=== PATIENT | male | born 1965 | race African-American/Black ===

== ENCOUNTER 2020-01-02 07:50 | Emergency (ER) | payer MEDICAID, OTHER ==
[~2020-01-02] VITALS: Ht 182.9 cm; Wt 77.1 kg
[~2020-01-02 07:50] MED LIST: BP MED; METF-370 PO; TRIA75TA55 PO
[2020-01-02 08:18] VITALS: BP 178/96
== END 2020-01-02 08:36 | disposition home or self-care (01) ==
LOC: ER 07:50
DX: I10 Essential (primary) hypertension (principal); K04.7 Periapical abscess without sinus; Z76.0 Encounter for issue of repeat prescription

== ENCOUNTER 2021-02-22 10:09 | Emergency (ER) | payer MEDICAID ==
[~2021-02-22] VITALS: Ht 182.9 cm; Wt 79.4 kg
[~2021-02-22 10:09] MED LIST changes: +AML5T PO; +ASPI81CH43 PO; +ATOR20TA50 PO; -BP MED; +LISI-646 PO; -METF-370 PO; -TRIA75TA55 PO
[2021-02-22 11:21] VITALS: BP 152/94
[2021-02-22] MEDS ORDERED: LACTULOSE 20Gm/30ML SOLN PO ONE (12:15)
== END 2021-02-22 12:25 | disposition home or self-care (01) ==
LOC: ER 10:09
DX: K59.00 Constipation, unspecified (principal); K64.4 Residual hemorrhoidal skin tags; I10 Essential (primary) hypertension; Z79.899 Other long term (current) drug therapy
CPT/HCPCS: 74018

== ENCOUNTER 2021-03-09 09:16 | Emergency (ER) | payer MEDICAID ==
[~2021-03-09] VITALS: Ht 182.9 cm; Wt 77.1 kg
[2021-03-09 09:46] LABS: Eosinophils # (auto) 0.1 10 ^3/uL (0-0.8); Monocytes # (auto) 0.7 10 ^3/uL (0-1.3)
[2021-03-09 09:48] LABS: Basophils # (auto) 0.1 10 ^3/uL (0-0.2); Basophils % (auto) 0.7 % (0.0-2.0); Eosinophils % (auto) 0.9 % (0.0-7.0); Hematocrit 45.2 % (41.0-53.0); Hemoglobin 14.8 g/dL (13.5-17.5); Lymphocytes # (auto) 2.9 10 ^3/uL (0.4-5.4); Lymphocytes % (auto) 36.9 % (10.0-50.0); Mean Corpuscular Hemoglobin 26.7 pg (28.0-32.0); Mean Corpuscular Hgb Conc. 32.8 g/dL (32.0-36.0); Mean Corpuscular Volume 81.5 fL (80.0-100.0); Monocytes % (auto) 8.7 % (0.0-12.0); Neutrophils # (auto) 4.2 10 ^3/uL (1.6-8.6); Neutrophils % (auto) 52.8 % (37.0-80.0); Platelet Count (auto) 226 10^3/uL (140-450); Red Blood Cells 5.54 10^6/uL (4.5-5.90); Red Cell Distribution Width 15.2 % (11.8-14.3); White Blood Cell 7.9 10^3/uL (4.4-10.8)
[2021-03-09] MEDS ORDERED: ASPirin 81 mg TAB PO ONE (10:00)
[2021-03-09 10:07] VITALS: BP 136/95
[2021-03-09 10:07] LABS: Albumin 3.8 g/dL (3.4-5.0); Anion Gap 10 (5-15); Blood Urea Nitrogen 20 mg/dL (7-18); Carbon Dioxide 24 mmol/L (21-32); Chloride 105 mmol/L (98-107); Glucose 90 mg/dL (74-106); Magnesium 2.4 mg/dL (1.6-2.6); Potassium 3.3 mmol/L (3.5-5.1); Sodium 139 mmol/L (136-145)
[2021-03-09 10:12] LABS: Alanine Aminotransferase 44 U/L (16-61); Alkaline Phosphatase 178 U/L (45-117); Aspartate Aminotransferase 23 U/L (15-37); BUN/Creatinine Ratio 16.4; Bilirubin, Total 0.4 mg/dL (0.2-1.0); GFR African American 79 mL/min; GFR Non-African American 65 mL/min; Total Protein 7.6 g/dL (6.4-8.2)
[2021-03-09] MEDS ORDERED: POTASSIUM EFFERVESENT TAB 25 MEQ PO ONE (10:30)
== END 2021-03-09 10:30 | disposition home or self-care (01) ==
LOC: ER 09:16
DX: R07.89 Other chest pain (principal); E87.6 Hypokalemia; I10 Essential (primary) hypertension
CPT/HCPCS: 36415; 71045; 80053; 83735; 84484; 85025; 93005

== ENCOUNTER 2021-07-21 09:04 | Inpatient (IN) | payer MEDICAID ==
[~2021-07-21] VITALS: Ht 182.9 cm; Wt 93.0 kg
[~2021-07-21 09:04] MED LIST changes: -LISI-646 PO; +LISI20TA28 PO
[2021-07-21 09:42] LABS: Urine Bacteria NONE SEEN /hpf (None Seen); Urine Blood Negative /uL (Negative); Urine Mucus FEW (None Seen); Urine WBC <1 /hpf (0 - 3)
[2021-07-21 10:45] LABS: Basophils # (auto) 0.1 10 ^3/uL (0-0.2); Basophils % (auto) 0.6 % (0.0-2.0); Eosinophils # (auto) 0.1 10 ^3/uL (0-0.8); Eosinophils % (auto) 0.8 % (0.0-7.0); Hematocrit 43.4 % (41.0-53.0); Hemoglobin 14.2 g/dL (13.5-17.5); Lymphocytes # (auto) 1.1 10 ^3/uL (0.4-5.4); Lymphocytes % (auto) 10.4 % (10.0-50.0); Mean Corpuscular Hemoglobin 27.3 pg (28.0-32.0); Mean Corpuscular Hgb Conc. 32.8 g/dL (32.0-36.0); Mean Corpuscular Volume 83.2 fL (80.0-100.0); Monocytes # (auto) 0.7 10 ^3/uL (0-1.3); Monocytes % (auto) 6.6 % (0.0-12.0); Neutrophils % (auto) 81.6 % (37.0-80.0); Nucleated Red Blood Cells % 0.1 %; Red Blood Cells 5.21 10^6/uL (4.5-5.90); Red Cell Distribution Width 17.6 % (11.8-14.3)
[2021-07-21 10:58] LABS: Albumin 3.5 g/dL (3.4-5.0); Calcium 9.1 mg/dL (8.5-10.1); Potassium 4.1 mmol/L (3.5-5.1)
[2021-07-21 11:01] LABS: BUN/Creatinine Ratio 17.6; Bilirubin, Total 0.8 mg/dL (0.2-1.0); Total Protein 7.3 g/dL (6.4-8.2)
[2021-07-21] MEDS ORDERED: cefTRIAXone 1GM/50ML D5W 50 ML IV ONE (12:30)
[2021-07-21] MEDS ORDERED: metroNIDAZOLE 500MG/100ML 100 ML IV ONE (12:30)
[2021-07-21] MEDS ORDERED: LACTATED RINGER'S 1,000 ML IV ONE (14:00)
[2021-07-21] MEDS ORDERED: NITROGLYCERIN 0.4 MG SL TAB SL PRN ×2 (14:00→15:00)
[2021-07-21] MEDS ORDERED: MORPHINE SULFATE INJECTION 2 MG/ML SYRG IV PRN ×3 (14:00→15:00)
[2021-07-21] MEDS ORDERED: ONDANSETRON HCL 4 MG/2 ML VIAL IV PRN (15:00)
[2021-07-21] MEDS ORDERED: ALUM & MAG HYDROX-SIMETH LIQ(MAALOX) 30 ML PO PRN (15:00)
[2021-07-21] MEDS ORDERED: ACETAMINOPHEN 325 MG TAB PO PRN (15:00)
[2021-07-21] MEDS ORDERED: LORazepam 0.5 MG TAB PO PRN (15:00)
[2021-07-21] MEDS ORDERED: hydrALAZINE HCL 20 MG/ML VL IV PRN (15:00)
[2021-07-21] MEDS ORDERED: DOCUSATE SOD 100 MG CAP PO PRN (15:00)
[2021-07-21 15:34] LABS: Cholesterol 145 mg/dL (< 200)
[2021-07-21 15:37] LABS: HDL Cholesterol 69 mg/dL (40-59); LDL Cholesterol 80 mg/dL (< 100); Triglycerides 47 mg/dL (< 150)
[2021-07-21 15:39] LABS: Magnesium 2.4 mg/dL (1.6-2.6); Phosphorus 3.2 mg/dL (2.5-4.90)
[2021-07-21] MEDS: SODIUM CHLORIDE 0.9% 1,000 ML IV SCH (15:39)
[2021-07-21 15:40] LABS: Amphetamine Screen, Urine NEGATIVE (NEGATIVE); Barbiturate Scree,Urine NEGATIVE (NEGATIVE); Benzodiazephine Screen, Urine NEGATIVE (NEGATIVE); Cannabinoid Screen, Urine NEGATIVE (NEGATIVE); Cocaine Screen, Urine NEGATIVE (NEGATIVE); Opiate Scree,Urine POSITIVE (NEGATIVE); Phencyclidine Screen, Urine NEGATIVE (NEGATIVE)
[2021-07-21 18:20] VITALS: BP 155/102
[2021-07-21] MEDS: HYDROcodone-ACET 5/325MG TAB PO PRN (20:32)
[2021-07-21] MEDS: metroNIDAZOLE 500MG/100ML 100 ML IV SCH (21:51)
[2021-07-21] MEDS: ATORVASTATIN 20 MG TAB PO SCH (21:52)
[2021-07-21 22:28] VITALS: BP 147/89
[2021-07-22] MEDS: SODIUM CHLORIDE 0.9% 1,000 ML IV SCH ×2 (04:23→17:57)
[2021-07-22 05:35] VITALS: BP 142/87
[2021-07-22] MEDS: metroNIDAZOLE 500MG/100ML 100 ML IV SCH ×3 (06:16→21:31)
[2021-07-22 08:15] VITALS: BP 133/76
[2021-07-22] MEDS: cefTRIAXone 1GM/50ML D5W 50 ML IV SCH (08:41)
[2021-07-22 09:00] VITALS: BP 133/76
[2021-07-22] MEDS: ASPirin 81 mg TAB PO SCH (10:31)
[2021-07-22] MEDS: LISINOPRIL 20 MG TAB PO SCH (10:32)
[2021-07-22] MEDS: ENOXAPARIN SOD 40 MG/0.4 ML SYRINGE SC SCH (10:32)
[2021-07-22] MEDS: amLODIPine BESYLATE 5 MG TAB PO SCH (10:32)
[2021-07-22] MEDS ORDERED: ARTIFICIAL TEARS 15ml EACHEYE PRN (15:45)
[2021-07-22 17:00] VITALS: BP 115/81
[2021-07-22] MEDS: HYDROcodone-ACET 5/325MG TAB PO PRN (17:57)
[2021-07-22] MEDS: LACTULOSE 20Gm/30ML SOLN PO PRN (21:13)
[2021-07-22] MEDS: ATORVASTATIN 20 MG TAB PO SCH (21:31)
[2021-07-22 22:00] VITALS: BP 122/95
[2021-07-23 05:00] VITALS: BP 121/75
[2021-07-23] MEDS: LACTULOSE 20Gm/30ML SOLN PO PRN (05:03)
[2021-07-23] MEDS: HYDROcodone-ACET 5/325MG TAB PO PRN (05:09)
[2021-07-23] MEDS: metroNIDAZOLE 500MG/100ML 100 ML IV SCH ×2 (05:50→13:49)
[2021-07-23] MEDS: SODIUM CHLORIDE 0.9% 1,000 ML IV SCH (07:20)
[2021-07-23 07:41] LABS: Basophils # (auto) 0 10 ^3/uL (0-0.2); Basophils % (auto) 0.5 % (0.0-2.0); Eosinophils # (auto) 0.1 10 ^3/uL (0-0.8); Eosinophils % (auto) 1.2 % (0.0-7.0); Hematocrit 40.5 % (41.0-53.0); Hemoglobin 13.2 g/dL (13.5-17.5); Lymphocytes # (auto) 1.3 10 ^3/uL (0.4-5.4); Lymphocytes % (auto) 22.8 % (10.0-50.0); Mean Corpuscular Hemoglobin 27.1 pg (28.0-32.0); Mean Corpuscular Hgb Conc. 32.6 g/dL (32.0-36.0); Mean Corpuscular Volume 83.3 fL (80.0-100.0); Monocytes # (auto) 0.7 10 ^3/uL (0-1.3); Monocytes % (auto) 12.3 % (0.0-12.0); Neutrophils # (auto) 3.6 10 ^3/uL (1.6-8.6); Neutrophils % (auto) 63.2 % (37.0-80.0); Red Blood Cells 4.86 10^6/uL (4.5-5.90); Red Cell Distribution Width 17.2 % (11.8-14.3); White Blood Cell 5.7 10^3/uL (4.4-10.8)
[2021-07-23 07:52] LABS: Potassium 4.5 mmol/L (3.5-5.1)
[2021-07-23 08:15] VITALS: BP 128/81
[2021-07-23 09:00] VITALS: BP 128/81
[2021-07-23] MEDS: cefTRIAXone 1GM/50ML D5W 50 ML IV SCH (09:33)
[2021-07-23] MEDS: amLODIPine BESYLATE 5 MG TAB PO SCH (09:34)
[2021-07-23] MEDS: ASPirin 81 mg TAB PO SCH (09:34)
[2021-07-23] MEDS: ENOXAPARIN SOD 40 MG/0.4 ML SYRINGE SC SCH (09:34)
[2021-07-23] MEDS: LISINOPRIL 20 MG TAB PO SCH (09:34)
[2021-07-23 13:00] VITALS: BP 134/95
[2021-07-23 14:25] VITALS: BP 134/95
== END 2021-07-23 15:00 | disposition home or self-care (01) | DRG 244 ==
LOC: ER 09:04 → OVERFLOW 13:46 → WEST WING 17:39
PROVIDERS: ADMIT Hospitalist; ATTEND Hospitalist
DX: K57.32 Diverticulitis of large intestine without perforation or abscess without bleeding (principal); N17.0 Acute kidney failure with tubular necrosis; D72.829 Elevated white blood cell count, unspecified; E11.22 Type 2 diabetes mellitus with diabetic chronic kidney disease; E78.5 Hyperlipidemia, unspecified; I12.9 Hypertensive chronic kidney disease with stage 1 through stage 4 chronic kidney disease, or unspecified chronic kidney disease; Z20.822 Contact with and (suspected) exposure to COVID-19; I16.9 Hypertensive crisis, unspecified; K59.00 Constipation, unspecified; N18.9 Chronic kidney disease, unspecified; Z79.82 Long term (current) use of aspirin; Z80.9 Family history of malignant neoplasm, unspecified; Z82.49 Family history of ischemic heart disease and other diseases of the circulatory system; Z83.3 Family history of diabetes mellitus
CPT/HCPCS: 36415; 71046; 74176; 80048; 80053; 80061; 80307; 81001; 83036; 83605; 83735; 83880; 84100; 84443; 84484; 85025; 87040; 87086; 87426; 96365; 96368; G0378; J0696; J3490

== ENCOUNTER 2022-04-18 14:19 | Emergency (ER) | payer MEDICAID ==
[~2022-04-18] VITALS: Ht 182.9 cm; Wt 72.6 kg
[2022-04-18 14:20] VITALS: BP 163/87
[2022-04-18] MEDS ORDERED: LIDO5DIS21 TOP (17:06)
[2022-04-18] MEDS ORDERED: LIDOCAINE 5% TOPICAL PATCH TOP ONE (17:15)
== END 2022-04-19 01:45 | disposition home or self-care (01) ==
LOC: ER 14:19
DX: S20.212A Contusion of left front wall of thorax, initial encounter (principal); I10 Essential (primary) hypertension; Z79.82 Long term (current) use of aspirin; Z79.899 Other long term (current) drug therapy; X50.1XXA Overexertion from prolonged static or awkward postures, initial encounter; Y93.89 Activity, other specified; Y92.89 Other specified places as the place of occurrence of the external cause; Y99.8 Other external cause status
CPT/HCPCS: 71111

== ENCOUNTER 2022-07-18 10:06 | Emergency (ER) | payer MEDICAID ==
[~2022-07-18] VITALS: Ht 182.9 cm; Wt 177.2 kg
[~2022-07-18 10:06] MED LIST changes: +LIDO5DIS21 TOP
[2022-07-18 10:16] VITALS: BP 173/94
[2022-07-18] MEDS ORDERED: IBUP800T27 PO ×2 (11:10→11:31)
== END 2022-07-18 11:40 | disposition home or self-care (01) ==
LOC: ER 10:06
DX: S63.501A Unspecified sprain of right wrist, initial encounter (principal); I10 Essential (primary) hypertension; Z85.46 Personal history of malignant neoplasm of prostate; X58.XXXA Exposure to other specified factors, initial encounter; Y93.89 Activity, other specified; Y92.89 Other specified places as the place of occurrence of the external cause; Y99.8 Other external cause status
CPT/HCPCS: 29125; 73110

== ENCOUNTER 2025-07-15 08:01 | Emergency (ER) | payer MEDICAID ==
[~2025-07-15] VITALS: Ht 182.9 cm; Wt 77.2 kg
[~2025-07-15 08:01] MED LIST changes: +IBUP-1456 PO; -LISI20TA28 PO; +LISI20TA56 PO
--- NOTE | 2025-07-15 08:38 | ED.PDOC ---
History of Present Illness HPI Comments A 60 YEAR OLD MALE PRESENTS TO THE ED WITH COMPLAINT OF HIGH BLOOD PRESSURE. PATIENT STATES HE HAS BEEN EXPERIENCING HIGHER BLOOD PRESSURE THAN USUAL DUE TO RUNNING OUT OF HIS BLOOD PRESSURE MEDICATION 1 WEEK AGO. PATIENT REPORTS HE TAKES AMLODIPINE 10 MG Q.D. AND LISINOPRIL 20 MG Q.D., BUT RAN OUT OF THIS M EDICATION 1 WEEK AGO. PATIENT REPORTS HE HAS A HISTORY OF A CVA IN DECEMBER 2024 WITH RIGHT-SIDED DEFICITS. PATIENT DENIES VISION CHANGES, SLURRED SPEECH, ONE-SIDED WEAKNESS, FACIAL DROOP, FEVER, CHILLS, SHORTNESS OF BREATH, CHEST P AIN, ABDOMINAL PAIN, NAUSEA, VOMITING, HEADACHE, OR OTHER COMPLAINTS. NO OTHER SYMPTOMS OR MODIFYING FACTORS AT THIS TIME. PATIENT IS ALERT, ORIENTED X 4, AND HAS STEADY GAIT. Chief Complaint: High Blood Pressure Time Seen by MD: 08:13 Primary Care Provider: SANDRA Reviewed Notes: Nurses Notes, Medications, Allergies Allergies: Coded Allergies: No Known Drug Allergy (Verified Allergy, Unknown, 04/26/21) Home Meds Active Scripts Amlodipine Besylate (Amlodipine Besylate) 10 Mg Tab, 1 TAB PO DAILY, #30 TAB Prov:MITCHEL BARTON 07/15/25 Lisinopril (Lisinopril) 20 Mg Tab, 1 TAB PO DAILY, #30 TAB Prov:MITCHEL BARTON 07/15/25 Amlodipine Besylate (NORVASC TABLET) 5 Mg Tb, 10 MG PO DAILY for 30 Days, #60 TAB Prov:MITCHEL BARTON 07/15/25 Ibuprofen (Ibuprofen) 800 Mg Tab, 1 TAB PO TID PRN, #30 TAB 0 Refills Prov:JUDI NGO 07/18/22 Lidocaine (LIDODERM 5% TOPICAL PATCH) 1 Patch Ph, 1 PATCH TOP DAILY for 10 Days, #15 PATCH 1 Refill Prov:ISABELA MOTT MD 04/18/22 Atorvastatin Calcium (ATORVASTATIN CALCIUM) 20 Mg Tab, 40 MG PO HS for 60 Days, #120 TAB Prov:JULIA PAREDES MD 01/15/20 Aspirin (Asa) 81 Mg Ch, 81 MG PO DAILY for 100 Days, #100 TAB Prov:JULIA PAREDES MD 01/15/20 Reported Medications Lisinopril (Lisinopril) 20 Mg Tab, 25 MG PO DAILY for 30 Days, MG 01/14/20 Information Source: Patient Mode of Arrival: Ambulatory Severity: Mild, Moderate Timing: Days Duration: Since onset, Days Prehospital treatment: None Medication Refill: Ran out of Medication, For: Hypertension Past Medical History PAST MEDICAL HISTORY: Cancer, CVA, HTN Surgical History: Denies all surgeries Family History Family History: Reviewed,noncontributory to illness, Family hx of DM, Family hx of Cancer, Family hx of heart shruthi, Family hx of HTN Social History Smoker: Non-Smoker Alcohol: Denies ETOH Use Drugs: Denies Drug Use Lives In: Home Constitutional: denies: chills, diaphoresis, fatigue, fever, malaise, sweats, weakness, others EENTM: denies: blurred vision, double vision, ear bleeding, ear discharge, ear drainage, ear pain, ear ringing, eye pain, eye redness, hearing loss, mouth pain, mouth swelling, nasal discharge, nose bleeding, nose congestion, nose pain, photophobia, tearing, throat pain, throat swelling, voice changes, others Respiratory: denies: cough, hemoptysis, orthopnea, SOB at rest, shortness of breath, SOB with excertion, stridor, wheezing, others Cardiovascular: reports: others (HIGH BLOOD PRESSURE); denies: chest pain, dizzy spells, diaphoresis, Dyspnea on exertion, edema, irregular heart beat, left arm pain, lightheadedness, palpitations, PND, syncope Gastrointestinal: denies: abdomen distended, abdominal pain, blood streaked bowels, constipated, diarrhea, dysphagia, difficulty swallowing, hematemesis, melena, nausea, poor appetite, poor fluid intake, rectal bleeding, rectal pain, vomiting, others Genitourinary: denies: burning, dysuria, flank pain, frequency, hematuria, incontinence, penile discharge, penile sore, pain, testicle pain, testicle swelling, urgency, others Neurological: denies: dizziness, fainting, headache, left sided numbness, left sided weakness, numbness, paresthesia, pre-existing deficit, right sided numbness, right sided weakness, seizure, speech problems, tingling, tremors, weakness, others Musculoskeletal: denies: back pain, gout, joint pain, joint swelling, muscle pain, muscle stiffness, neck pain, others Integumetry: denies: bruises, change in color, change in hair/nails, dryness, laceration, lesions, lumps, rash, wounds, others Allergic/Immunocompromised: denies: Difficulty Healing, Frequent Infections, Hives, Itching, others Hematologic/Lymphatic: denies: anemia, blood clots, easy bleeding, easy bruising, swollen glands, others Endocrine: denies: excessive hunger, excessive sweating, excessive thirst, excessive urination, flushing, intolerance to cold, intolerance to heat, unexplained weight gain, unexplained weight loss, others Psychiatric: denies: anxiety, bipolar disorder, depression, hopeless, panic disorder, schizophrenia, sleepless, suicidal, others All Other Systems: Reviewed and Negative Physical Exam General Appearance: No Apparent Distress, Normal HEENT: Normal ENT Inspection, PERRL/EOMI, Pharynx Normal, TMs Normal Neck: Full Range of Motion, Non-Tender, Normal, Normal Inspection Respiratory: Chest Non-Tender, Lungs Clear, No Accessory Muscle Use, No Respiratory Distress, Normal Breath Sounds Cardiovascular: No Edema, No JVD, No Murmur, No Gallop, Normal Peripheral Pulses, Regular Rate/Rhythm Breast Exam: Deferred Gastrointestinal: No Organomegaly, Non Tender, No Pulsatile Mass, Normal Bowel Sounds, Soft Genitalia: Deferred Pelvic: Deferred Rectal: Deferred Extremities: No calf tenderness, Normal capillary refill, Normal inspection, Normal range of motion, Non-tender, No pedal edema Musculoskeletal : Apperance: Normal Neurologic: Alert, roadway designer II-XII nml as Tested, No Motor Deficits, Normal Affect, Normal Mood, No Sensory Deficits Cerebellar Function: Normal Reflexes: Normal Skin: Dry, Normal Color, Warm Peripheral Pulses: 2+ carotid (R), 2+ carotid (L) Lymphatic: No Adenopathy Was a procedure done? Was a procedure done?: No Differential Dx Considerations may include: HYPERTENSION, UNCONTROLLED HYPERTENSION, MEDICATION REFILL, HISTORY OF CVA, BRAIN MASS, BRAIN BLEED X-Ray, Labs, Meds, VS Vital Signs Date Time Temp Pulse Resp B/P (MAP) Pulse Ox O2 Delivery O2 Flow Rate FiO2 07/15/25 10:19 69 18 98 Room Air 07/15/25 10:19 98.0 69 18 120/79 (93) 98 98.0 07/15/25 08:04 97.7 66 18 160/95 99 97.7 Lab Test 07/15/25 08:35 Range/Units White Blood Count 5.3 4.4-10.8 10^3/uL Red Blood Count 4.84 4.5-5.90 10^6/uL Hemoglobin 13.6 13.5-17.5 g/dL Hematocrit 40.9 L 41.0-53.0 % Mean Corpuscular Volume 84.5 80.0-100.0 fL Mean Corpuscular Hemoglobin 28.2 28.0-32.0 pg Mean Corpuscular Hemoglobin Concent 33.3 32.0-36.0 g/dL Red Cell Distribution Width 14.6 H 11.8-14.3 % Platelet Count 135 L 140-450 10^3/uL Mean Platelet Volume 8.0 6.9-10.8 fL Neutrophils (%) (Auto) 68.9 37.0-80.0 % Lymphocytes (%) (Auto) 22.7 10.0-50.0 % Monocytes (%) (Auto) 7.5 0.0-12.0 % Eosinophils (%) (Auto) 0.5 0.0-7.0 % Basophils (%) (Auto) 0.4 0.0-2.0 % Neutrophils # (Auto) 3.6 1.6-8.6 10 ^3/uL Lymphocytes # (Auto) 1.2 0.4-5.4 10 ^3/uL Monocytes # (Auto) 0.4 0-1.3 10 ^3/uL Eosinophils # (Auto) 0 0-0.8 10 ^3/uL Basophils # (Auto) 0 0-0.2 10 ^3/uL Nucleated Red Blood Cells 0.1 % Sodium Level 143 136-145 mmol/L Potassium Level 4.6 3.5-5.1 mmol/L Chloride Level 108 H 98-107 mmol/L Carbon Dioxide Level 26 20-31 mmol/L Anion Gap 9 5-15 Blood Urea Nitrogen 25 H 9-23 mg/dL Creatinine 1.30 0.700-1.30 mg/dL Glomerular Filtration Rate Calc 63 >90 mL/min BUN/Creatinine Ratio 19.2 10.0-20.0 Serum Glucose 118 H 74-106 mg/dL Calcium Level 10.2 8.7-10.4 mg/dL Troponin I High Sensitivity 8 </=54 ng/L CLINICAL INFORMATION: Hypertension. History of CVA. TECHNIQUE: Axial imaging was obtained through the brain without contrast. Coronal and sagittal reformatted images were obtained, reviewed, and stored. Images were reviewed in brain and bone windows. All CT scans at this medical facility are performed using dose modulation techniques as appropriate to a performed exam including the following: Automated exposure control was utilized; adjustment of the MA and/or KV according to patient size; and use of iterative reconstruction technique. CTDIvol = 58.42 mGy DLP = 1018.49 mGy-cm COMPARISON: None FINDINGS: There is no acute intracranial hemorrhage. No mass effect or midline shift. Scattered areas of hypoattenuation are seen in the periventricular and subcortical white matter, which are nonspecific but most likely sequelae of small vessel ischemic disease. There are chronic appearing lacunar infarcts in the bilateral basal ganglia and thalami. The ventricles and sulci are within normal limits in size for age. Basal cisterns are patent. The calvarium is unremarkable. Paranasal sinuses and mastoid air cells are clear. IMPRESSION: 1. No CT evidence of acute intracranial abnormality. 2. Nonacute findings as described above. ATED BY: MARGARITO ROBBINS DO DICTATED DATE/TIME: 07/15/25905 SIGNED BY: MARGARITO ROBBINS DO SIGNED DATE/TIME: 07/15/25905 CC: CHEST RADIOGRAPH Indication: HTN Technique: Single frontal view of the chest was obtained COMPARISON: CXR2 on DOS: 07/21/21 FINDINGS: Lines and Tubes: None Lungs: Clear Pleura: No effusion. No pneumothorax. Cardiomediastinal contours: Unremarkable Bones: Unremarkable IMPRESSION: No acute disease. ATED BY: CASSIDY RODRIGUEZ MD DICTATED DATE/TIME: 07/15/25907 SIGNED BY: CASSIDY RODRIGUEZ MD SIGNED DATE/TIME: 07/15/25907 CC: X-Ray, Labs, Meds, VS Comment EXTERNAL MEDICAL RECORDS REVIEWED: [NONE] INDEPENDENT HISTORIANS: [NONE] SOCIAL DETERMINANTS OF HEALTH: [NONE] LABS ORDERED: CBC, BMP, TROPONIN REVIEWED AND INTERPRETED RESULTS: NORMAL IMAGING ORDERED: CT BRAIN, XR CHEST TREATMENTS ORDERED: NONE PROCEDURES PERFORMED: NONE CRITICAL CARE TIME: NONE I HAVE DISCUSSED THE PATIENT WITH THE ATTENDING PHYSICIAN DR. BRAN AND HE AGREES WITH THE PATIENT'S PLAN OF CARE AND DISPOSITION. BASED ON HISTORY OF PRESENT ILLNESS, AND PHYSICAL EXAM, PATIENT WILL BE DISCHARGED HOME. DISCUSSED PLAN FOR DISCHARGE HOME WITH RX [AMLODIPINE 10 MG AND LISINOPRIL 20 MG]. MEDICATION WARNINGS GIVEN. SHARED DECISION MAKING: DISCUSSED WITH PATIENT THAT THEIR WORKUP WAS NORMAL. PATIENT INSTRUCTED TO FOLLOW UP WITH PRIMARY CARE PROVIDER IN 1-2 DAYS FOR RE- EVALUATION OF SYMPTOMS. PATIENT VERBALIZES UNDERSTANDING TO RETURN TO ED FOR NEW OR WORSENING SYMPTOMS OR IF FOLLOW UP WITH PCP CANNOT BE OBTAINED. PATIENT FEELS COMFORTABLE GOING HOME AT THIS TIME. ALL QUESTIONS ADDRESSED AT TIME OF DISCHARGE. Images Reviewed?: Images reviewed and evaluated by me Time of 1ST Reevaluation: 10:20 Reevaluation 1ST: Improved Patient Education/Counseling: Diagnosis, Treatment, Need For Follow Up Family Education/Counseling: Diagnosis, Treatment, Need For Follow Up Medical Screening: No EMC Exist At This Time SEPSIS Sepsis Screen Date sepsis recognized/suspect: Jul 15, 2025 Time Sepsis recognized/suspect: 809 Recent Procedure: No On Antibiotic Therapy: No Respiratory Rate >20: No Heart Rate >90: No Temp<36 C (96.8 F) or >38.3 C: No SBP <90 or MAP <65 mmHG: No New Acute Mental Status Change: No Is the patient on CPAP, BIPAP,: No Physician Orders Chest Portable (07/15/25 08:31) Head Without Contrast (07/15/25 08:31) Vital Signs Date Time Temp Pulse Resp B/P (MAP) Pulse Ox O2 Delivery O2 Flow Rate FiO2 07/15/25 10:19 69 18 98 Room Air 07/15/25 10:19 98.0 69 18 120/79 (93) 98 98.0 07/15/25 08:04 97.7 66 18 160/95 99 97.7 Laboratory Tests Test 07/15/25 08:35 White Blood Count 5.3 10^3/uL (4.4-10.8) Departure 1 Departure Time of Disposition: 10:20 Impression: Primary Impression: HTN (hypertension) Qualified Codes: I10 - Essential (primary) hypertension Additional Impression: Encounter for medication refill Disposition: HOME / SELF CARE / HOMELESS Condition: Stable Additional Instructions: FOLLOW-UP WITH PCP IN 1 TO 2 DAYS. TAKE MEDICATIONS PRESCRIBED. RETURN TO ED FOR ANY NEW OR WORSENING SYMPTOMS. e-Prescriptions Amlodipine Besylate (Amlodipine Besylate) 10 Mg Tab 1 TAB PO DAILY, #30 TAB Prov: MITCHEL BARTON 07/15/25 Lisinopril (Lisinopril) 20 Mg Tab 1 TAB PO DAILY, #30 TAB Prov: MITCHEL BARTON 07/15/25 Amlodipine Besylate (NORVASC TABLET) 5 Mg Tb 10 MG PO DAILY for 30 Days, #60 TAB Prov: MITCHEL BARTON 07/15/25 Discharged With: Self Critical Care Note Critical Care Time?: No Stability Stability form required: No I personally scribed for MITCHEL BARTON ([email or web address]) on 07/15/25 at 08:38. Electronically submitted by Chevy Thrasher ([employer]). I personally scribed for MITCHEL BARTON ([email or web address]) on 07/15/25 at 09:42. Electronically submitted by Chevy Thrasher (TALIA). MITCHEL BARTON Jul 15, 2025 08:38
[2025-07-15 09:05] LABS: Hematocrit 40.9 % (41.0-53.0); Hemoglobin 13.6 g/dL (13.5-17.5); Mean Corpuscular Hemoglobin 28.2 pg (28.0-32.0); Mean Corpuscular Volume 84.5 fL (80.0-100.0); Nucleated Red Blood Cells % 0.1 %
[2025-07-15 09:06] LABS: Potassium 4.6 mmol/L (3.5-5.1); Sodium 143 mmol/L (136-145)
[2025-07-15 09:07] LABS: Anion Gap 9 (5-15); Calcium 10.2 mg/dL (8.7-10.4); Carbon Dioxide 26 mmol/L (20-31)
[2025-07-15 09:08] LABS: Chloride 108 mmol/L (98-107)
--- NOTE | 2025-07-15 09:09 | DVH ---
CLINICAL INFORMATION: Hypertension. History of CVA. TECHNIQUE: Axial imaging was obtained through the brain without contrast. Coronal and sagittal reform atted images were obtained, reviewed, and stored. Images were reviewed in brain and bone windows. Al l CT scans at this medical facility are performed using dose modulation techniques as appropriate to a performed exam including the following: Automated exposure control was utilized; adjustment of the MA and/or KV according to patient size; and use of iterative reconstruction technique. CTDIvol = 58.4 2 mGy DLP = 1018.49 mGy-cm COMPARISON: None FINDINGS: There is no acute intracranial hemorrhage. No mass effect or midline shift. Scattered areas of hypoattenuation are seen in the periventricular and subcortical white matter, which are nonspecif ic but most likely sequelae of small vessel ischemic disease. There are chronic appearing lacunar inf arcts in the bilateral basal ganglia and thalami. The ventricles and sulci are within normal limits i n size for age. Basal cisterns are patent. The calvarium is unremarkable. Paranasal sinuses and mast oid air cells are clear. IMPRESSION: 1. No CT evidence of acute intracranial abnormality. 2. Nonacute findings as described above.
--- NOTE | 2025-07-15 09:10 | DVH ---
CHEST RADIOGRAPH Indication: HTN Technique: Single frontal view of the chest was obtained COMPARISON: CXR2 on DOS: 07/21/21 FINDINGS: Lines and Tubes: None Lungs: Clear Pleura: No effusion. No pneumothorax. Cardiomediastinal contours: Unremarkable Bones: Unremarkable IMPRESSION: No acute disease.
[2025-07-15 09:12] LABS: BUN/Creatinine Ratio 19.2 (10.0-20.0)
[2025-07-15 09:16] LABS: Blood Urea Nitrogen 25 mg/dL (9-23); Glucose 118 mg/dL (74-106)
[2025-07-15 10:19] VITALS: BP 120/79; PULSE 69; RESP 18; TEMP 98; O2SAT 98
[2025-07-15] MEDS ORDERED: LISI20TA56 PO (10:28)
[2025-07-15] MEDS ORDERED: AMLO1TAB23 PO (10:28)
[2025-07-15] MEDS ORDERED: AML5T PO (10:28)
== END 2025-07-15 10:50 | disposition home or self-care (01) ==
LOC: ER 08:01
DX: I10 Essential (primary) hypertension (principal); R42 Dizziness and giddiness; Z76.0 Encounter for issue of repeat prescription; Z86.73 Personal history of transient ischemic attack (TIA), and cerebral infarction without residual deficits; Z79.899 Other long term (current) drug therapy
CPT/HCPCS: 36415; 70450; 71045; 80048; 84484; 85025